=== PATIENT | male | born 1985 | race Caucasian/White ===

== ENCOUNTER 2019-05-10 12:15 | Emergency (ER) | payer BC ==
[2019-05-10 12:39] VITALS: RESP 18; TEMP 98.6
[2019-05-10] MEDS ORDERED: SODIUM CHLORIDE 0.9% 1,000 ML IV STA (12:57)
[2019-05-10] MEDS ORDERED: PANTOPRAZOLE 40 MG/10 ML VIAL IVP STA (12:58)
--- NOTE | 2019-05-10 13:10 | ED ---
Abdominal Pain HPI - General Source: patient, RN notes reviewed Mode of arrival: ambulatory Limitations: no limitations <Manuel Jimenes - Last Filed: 05/10/19 14:55> <Eliane Mckinney - Last Filed: 05/13/19 01:43> - General Chief Complaint: Abdominal Pain Stated Complaint: VOMITING Time Seen by Provider: 05/10/19 12:34 - History of Present Illness Initial Comments: 34-year-old male presents emergency Department chief complaint of vomiting. Patient states she's been waking up every morning and has episode of vomiting. He states he usually starts surgeries since upright he starts coughing and then has some vomiting after. He's had some episodes where he said mixed blood in it. He states that he has some burning in his throat. Patient states he occasionally has epigastric pain but no current localized abdominal pain. He does admit that years ago he had some blood in his stool. He is supposed to follow for scope states that he lost his insurance so he never followed through. He denies any prior abdominal surgeries. He states it is just feels very tired, rundown. He doesn't that he smokes daily but also uses chewing tobacco. Patient states that he does take Nexium states that he only recently started taking this medication. (Manuel Jimenes) - Related Data Previous Rx's Medication Instructions Recorded Omeprazole 40 mg PO DAILY #14 capsule. 05/10/19 Ondansetron Odt [Zofran Odt] 4 mg PO Q8HR PRN #10 tab 05/10/19 Sucralfate [Carafate] 1 gm PO BID #14 tablet 05/10/19 Allergies Allergy/AdvReac Type Severity Reaction Status Date / Time cefaclor [From [facility]] Allergy Rash/Hives Verified 05/10/19 13:39 Review of Systems ROS Other: All systems not noted in ROS Statement are negative. <Manuel Jimenes - Last Filed: 05/10/19 14:55> ROS Other: All systems not noted in ROS Statement are negative. <Eliane Mckinney - Last Filed: 05/13/19 01:43> ROS Statement: Those systems with pertinent positive or pertinent negative responses have been documented in the HPI. Past Medical History Past Medical History: GERD/Reflux History of Any Multi-Drug Resistant Organisms: None Reported Past Surgical History: Hernia Repair Past Psychological History: No Psychological Hx Reported Smoking Status: Current every day smoker Past Alcohol Use History: Daily Past Drug Use History: None Reported <Manuel Jimenes - Last Filed: 05/10/19 14:55> General Exam Limitations: no limitations General appearance: alert, in no apparent distress Head exam: Present: atraumatic, normocephalic, normal inspection Eye exam: Present: normal appearance, PERRL, EOMI. Absent: scleral icterus, conjunctival injection, periorbital swelling ENT exam: Present: normal exam, mucous membranes moist Neck exam: Present: normal inspection, full ROM. Absent: tenderness, meningismus, lymphadenopathy Respiratory exam: Present: normal lung sounds bilaterally. Absent: respiratory distress, wheezes, rales, rhonchi, stridor Cardiovascular Exam: Present: regular rate, normal rhythm, normal heart sounds. Absent: systolic murmur, diastolic murmur, rubs, gallop, clicks GI/Abdominal exam: Present: soft, normal bowel sounds. Absent: distended, tend erness, guarding, rebound, rigid Back exam: Absent: CVA tenderness (R), CVA tenderness (L) Neurological exam: Present: alert Skin exam: Present: warm, dry, intact, normal color. Absent: rash <Manuel Jimenes - Last Filed: 05/10/19 14:55> Course Vital Signs 05/10/19 05/10/19 05/10/19 12:36 14:58 15:20 Temperature 98.6 F 98.6 F Pulse Rate 103 H 95 Respiratory 18 18 Rate Blood Pressure 157/101 119/81 143/101 O2 Sat by Pulse 97 100 Oximetry Medical Decision Making - Lab Data Result diagrams: 05/10/19 13:00 05/10/19 13:00 <Manuel Jimenes - Last Filed: 05/10/19 14:55> - Lab Data Result diagrams: 05/10/19 13:00 05/10/19 13:00 <Eliane Mckinney - Last Filed: 05/13/19 01:43> - Medical Decision Making 34-year-old male presented for stomach issues. Patient's been having recurrent vomiting. Labs are unremarkable, chest x-ray unremarkable. We did discuss his tobacco use.I counseled the patient for smoking cessation for greater than 3 minutes. Patient will be started on omeprazole 40 mg, will follow-up with GI for upper and lower GI, advised to follow-up PCP. (Manuel Jimenes) I was available for consultation in the emergency department. The history and physical exam were done by the midlevel provider. I was consulted for this patients care. I reviewed the case with the midlevel provider and based on their presentation of the patient, I agree with the assessment, medical decision making and plan of care as documented. Chart was dictated using [employer] dictation software. Attempts were made to correct any dictation errors however some typographical errors may persist. (Eliane Mckinney) - Lab Data Lab Results 05/10/19 05/10/19 05/10/19 Range/Units 13:00 13:00 14:48 WBC 6.2 (3.8-10.6) k/uL RBC 5.14 (4.30-5.90) m/uL Hgb 17.2 (13.0-17.5) gm/dL Hct 50.1 (39.0-53.0) % MCV 97.5 (80.0-100.0) fL MCH 33.4 (25.0-35.0) pg MCHC 34.3 (31.0-37.0) g/dL RDW 11.8 (11.5-15.5) % Plt Count 236 (150-450) k/uL Neutrophils % 69 % Lymphocytes % 22 % Monocytes % 5 % Eosinophils % 2 % Basophils % 1 % Neutrophils # 4.3 (1.3-7.7) k/uL Lymphocytes # 1.4 (1.0-4.8) k/uL Monocytes # 0.3 (0-1.0) k/uL Eosinophils # 0.1 (0-0.7) k/uL Basophils # 0.1 (0-0.2) k/uL Sodium 142 (137-145) mmol/L Potassium 4.1 (3.5-5.1) mmol/L Chloride 107 (98-107) mmol/L Carbon Dioxide 24 (22-30) mmol/L Anion Gap 11 mmol/L BUN 19 (9-20) mg/dL Creatinine 1.01 (0.66-1.25) mg/dL Est GFR (CKD-EPI)AfAm >90 (>60 ml/min/1.73 sqM) Est GFR (CKD-EPI)NonAf >90 (>60 ml/min/1.73 sqM) Glucose 113 H (74-99) mg/dL Calcium 9.4 (8.4-10.2) mg/dL Total Bilirubin 0.6 (0.2-1.3) mg/dL AST 40 (17-59) U/L ALT 57 (21-72) U/L Alkaline Phosphatase 57 (38-126) U/L Total Protein 8.0 (6.3-8.2) g/dL Albumin 4.6 (3.5-5.0) g/dL Amylase 65 (30-110) U/L Lipase 253 (23-300) U/L TSH 0.848 (0.465-4.680) mIU/L Urine Color Yellow Urine Appearance Clear (Clear) Urine pH 7.5 (5.0-8.0) Ur Specific [place] 1.022 (1.001-1.035) Urine Protein Trace H (Negative) Urine Glucose (UA) Negative (Negative) Urine Ketones Negative (Negative) Urine Blood Negative (Negative) Urine Nitrite Negative (Negative) Urine Bilirubin Negative (Negative) Urine Urobilinogen <2.0 (<2.0) mg/dL Ur Leukocyte Esterase Negative (Negative) Disposition Is patient prescribed a controlled substance at d/c from ED?: No Time of Disposition: 15:01 <Manuel Jimenes - Last Filed: 05/10/19 14:55> <Eliane Mckinney A - Last Filed: 05/13/19 01:43> Clinical Impression: Nausea & vomiting, Hematemesis, Gastritis Disposition: HOME SELF-CARE Condition: Stable Instructions (If sedation given, give patient instructions): Gastritis (ED) Additional Instructions: Please return to the Emergency Department if symptoms worsen or any other concerns. Prescriptions: Sucralfate [Carafate] 1 gm PO BID #14 tablet Omeprazole 40 mg PO DAILY #14 capsule. Ondansetron Odt [Zofran Odt] 4 mg PO Q8HR PRN #10 tab PRN Reason: Nausea Referrals: Harriett Bustamante MD [Primary Care Provider] - 1-2 days Geoff Molina MD [STAFF PHYSICIAN] - 1-2 days
[2019-05-10 13:28] LABS: Basophils # (A) 0.1 k/uL (0-0.2); Basophils % (A) 1 %; Eosinophils # (A) 0.1 k/uL (0-0.7); Eosinophils % (A) 2 %; HCT 50.1 % (39.0-53.0); HGB 17.2 gm/dL (13.0-17.5); Lymphocytes # (A) 1.4 k/uL (1.0-4.8); Lymphocytes % (A) 22 %; MCH 33.4 pg (25.0-35.0); MCHC 34.3 g/dL (31.0-37.0); MCV 97.5 fL (80.0-100.0); Mean Platelet Volume 6.6; Monocytes # (A) 0.3 k/uL (0-1.0); Monocytes % (A) 5 %; Neutrophils # (A) 4.3 k/uL (1.3-7.7); Neutrophils % (A) 69 %; Platelet Count 236 k/uL (150-450); RBC 5.14 m/uL (4.30-5.90); RDW 11.8 % (11.5-15.5); WBC 6.2 k/uL (3.8-10.6)
[2019-05-10 13:35] LABS: ALT 57 U/L (21-72); AST 40 U/L (17-59); African American GFR (CKD) >90 (>60 ml/min/1.73 sqM); Albumin 4.6 g/dL (3.5-5.0); Alkaline Phosphatase 57 U/L (38-126); Amylase 65 U/L (30-110); Anion Gap 11 mmol/L; Blood Urea Nitrogen 19 mg/dL (9-20); Calcium 9.4 mg/dL (8.4-10.2); Carbon Dioxide 24 mmol/L (22-30); Chloride 107 mmol/L (98-107); Glucose 113 mg/dL (74-99); Potassium 4.1 mmol/L (3.5-5.1); Sodium 142 mmol/L (137-145); Total Bilirubin 0.6 mg/dL (0.2-1.3)
--- NOTE | 2019-05-10 14:04 | XR ---
EXAMINATION TYPE: XR chest 2V DATE OF EXAM: 05/10/2019 COMPARISON: NONE HISTORY: Nausea and vomiting TECHNIQUE: Frontal and lateral views of the chest are obtained. FINDINGS: Heart and mediastinum are normal. Lungs are clear. Diaphragm is normal. Bony thorax appear s normal. IMPRESSION: Normal chest
[2019-05-10 14:53] LABS: Appearance,Urine Clear (Clear); Bilirubin,Urine Negative (Negative); Blood,Urine Negative (Negative); Color,Urine Yellow; Glucose,Urine (UA) Negative (Negative); Ketones,Urine Negative (Negative); Leukocyte Esterase,Urine Negative (Negative); Nitrite,Urine Negative (Negative); PH, Urine 7.5 (5.0-8.0); Protein,Urine Trace (Negative); Specific Gravity,Urine 1.022 (1.001-1.035); Urobilinogen,Urine <2.0 mg/dL (<2.0)
[2019-05-10 15:00] VITALS: PULSE 95
[2019-05-10 15:22] VITALS: BP 143/101
== END 2019-05-10 15:20 | disposition home or self-care (01) ==
LOC: EC 12:15
DX: K29.70 Gastritis, unspecified, without bleeding (principal); K92.0 Hematemesis; F17.200 Nicotine dependence, unspecified, uncomplicated; Z71.6 Tobacco abuse counseling; Z88.1 Allergy status to other antibiotic agents
CPT/HCPCS: 36415; 80053; 84443; 82150; 83690; 85025; 81003; 71046; 99284; 96374; 96361; C9113

== ENCOUNTER 2020-01-23 14:17 | Emergency (ER) | payer BC ==
[2020-01-23 14:54] VITALS: PULSE 85; RESP 20; TEMP 98.5
[2020-01-23 14:57] VITALS: BP 149/104
--- NOTE | 2020-01-23 15:27 | ED ---
General Adult HPI - General Chief complaint: Upper Respiratory Infection Stated complaint: Congestion Time Seen by Provider: 01/23/20 15:10 Source: patient Mode of arrival: ambulatory Limitations: no limitations - History of Present Illness Initial comments: Patient is a 34-year-old male presenting to emergency Department with chief complaint of cough and congestion. Patient reports symptoms started since yesterday. Patient reports a productive cough with yellow/white sputum production. Patient does report occasional wheezing but states this has been ongoing for quite sometime. Patient states she has never been officially diagnosed with asthma. Patient is a daily smoker. Patient denies any night sweats or chills. Denies any sore throat but does report some sinus congestion. Denies any rhinorrhea, headaches or visual changes. Patient is concerned for covid-19 even though he is unaware of any direct exposure. Denies chest pain shortness of breath. - Related Data Home Medications Medication Instructions Recorded Confirmed Magnesium(Unknown Dose) 1 tab PO DAILY 01/23/20 01/23/20 Omeprazole 40 mg PO DAILY@1100 01/23/20 01/23/20 Sucralfate [Carafate] 1 gm PO DAILY@1100 01/23/20 01/23/20 Vitamin C(Unknown Dose) 1 tab PO DAILY 01/23/20 01/23/20 Previous Rx's Medication Instructions Recorded Guaifenesin/Dextromethorphan 1 each PO BID #30 tab 01/23/20 [Mucinex Dm ER 1,200-60 mg Tab] Allergies Allergy/AdvReac Type Severity Reaction Status Date / Time cefaclor [From [facility]] Allergy Swelling Verified 01/23/20 15:39 Review of Systems ROS Statement: Those systems with pertinent positive or pertinent negative responses have been documented in the HPI. ROS Other: All systems not noted in ROS Statement are negative. Past Medical History Past Medical History: GERD/Reflux History of Any Multi-Drug Resistant Organisms: None Reported Past Surgical History: Hernia Repair Past Psychological History: No Psychological Hx Reported Smoking Status: Current every day smoker Past Alcohol Use History: Daily Past Drug Use History: None Reported General Exam Limitations: no limitations General appearance: alert, in no apparent distress Head exam: Present: atraumatic, normocephalic, normal inspection Eye exam: Present: normal appearance, PERRL, EOMI Pupils: Present: normal accommodation ENT exam: Present: normal exam, normal oropharynx, mucous membranes moist, TM's normal bilaterally, normal external ear exam Neck exam: Present: normal inspection, full ROM. Absent: tenderness Respiratory exam: Present: normal lung sounds bilaterally. Absent: respiratory distress, wheezes, rales, rhonchi, stridor, decreased breath sounds Cardiovascular Exam: Present: regular rate, normal rhythm, normal heart sounds Back exam: Present: normal inspection, full ROM. Absent: tenderness Neurological exam: Present: alert, oriented X3, normal gait Psychiatric exam: Present: normal affect, normal mood Skin exam: Present: warm, dry, intact, normal color Course Vital Signs 01/23/20 01/23/20 14:51 14:54 Temperature 98.5 F Pulse Rate 85 85 Respiratory 20 Rate Blood Pressure 166/101 149/104 O2 Sat by Pulse 98 99 Oximetry Medical Decision Making - Medical Decision Making Patient is a 34-year-old male presenting to emergency Department with a chief complaint of a cough. Symptoms ongoing for the past one day. ENT examination is unremarkable. Lungs are clear to auscultation bilaterally. Patient is a smoker. Chest x-ray shows no acute processes. covid-19 testing pending. Patient advised self isolate until he received the results. Advised to take Tylenol only if he develops a fever. She was advised to follow with primary care. Return parameters were thoroughly discussed with patient is understanding and agreeable. Case discussed with physician. His Disposition Clinical Impression: Cough, Bronchitis Disposition: HOME SELF-CARE Condition: Stable Additional Instructions: Take prescribed medication as directed. UA performed within 24-48 hours regarding covid-19 testing. Until then, self isolate and take Tylenol if she develops a fever. Prescriptions: Guaifenesin/Dextromethorphan [Mucinex Dm ER 1,200-60 mg Tab] 1 each PO BID #30 tab Is patient prescribed a controlled substance at d/c from ED?: No Referrals: Harriett Bustamante MD [Primary Care Provider] - 1-2 days Time of Disposition: 16:00
--- NOTE | 2020-01-23 15:28 | XR ---
EXAMINATION TYPE: XR chest 2V DATE OF EXAM: 01/23/2020 COMPARISON: 05/10/2019 HISTORY: 34-year-old male cough and congestion TECHNIQUE: PA and lateral views FINDINGS: The cardiomediastinal silhouette, aorta, and pulmonary vasculature are within normal limits. Lungs an d pleural spaces are clear. IMPRESSION: No acute cardiopulmonary process.
== END 2020-01-23 16:30 | disposition home or self-care (01) ==
LOC: EC 14:17
DX: J40 Bronchitis, not specified as acute or chronic (principal); K21.9 Gastro-esophageal reflux disease without esophagitis; F17.200 Nicotine dependence, unspecified, uncomplicated; Z20.828 Contact with and (suspected) exposure to other viral communicable diseases; Z79.899 Other long term (current) drug therapy; Z88.1 Allergy status to other antibiotic agents
CPT/HCPCS: 99283; 71046; U0003